=== PATIENT | female | born 1950 | race Asian ===

== ENCOUNTER 2017-09-28 14:58 | Emergency (ER) | payer OTHER, MEDICARE ==
[~2017-09-28] VITALS: Ht 165.1 cm; Wt 50.7 kg
[~2017-09-28 14:58] MED LIST: ASPI-496 PO; CARV-39 PO; LISI-167 PO; SODI30SP INH
[2017-09-28] MEDS ORDERED: SODIUM CHLORIDE FLUSH 10ML SYR IVF ONE (15:30)
[2017-09-28] MEDS ORDERED: ONDANSETRON 2MG/ML, 2ML IVPush ONE (15:30)
[2017-09-28] MEDS ORDERED: MORPHINE SULFATE 4 MG/ML, 1ML IVPush PRN (15:30)
[2017-09-28] MEDS ORDERED: ENALAPRILAT 1.25 MG/ML, 2ML IV ONE (15:30)
[2017-09-28] MEDS ORDERED: LABETALOL 5MG/ML, 20ML IVPush ONE (15:30)
[2017-09-28] MEDS ORDERED: ENALAPRILAT 1.25 MG/ML, 2ML ONE (15:36)
[2017-09-28] MEDS ORDERED: morphine SULFATE 10 MG/ML, 1ML ONE (15:37)
[2017-09-28] MEDS ORDERED: ONDANSETRON 2MG/ML, 2ML ONE (15:37)
[2017-09-28] MEDS ORDERED: LABETALOL 5MG/ML, 20ML ONE (15:37)
[2017-09-28 16:35] VITALS: BP 158/64
== END 2017-09-28 16:39 | disposition home or self-care (01) ==
LOC: ED 16:24
DX: I10 Essential (primary) hypertension (principal); I25.2 Old myocardial infarction; Z86.73 Personal history of transient ischemic attack (TIA), and cerebral infarction without residual deficits
CPT/HCPCS: 36415; 70450; 80047; 93005; 96374; 96375; 99285; J2405

== ENCOUNTER 2020-09-12 14:14 | Inpatient (IN) | payer OTHER, MEDICARE ==
[~2020-09-12] VITALS: Ht 152.4 cm; Wt 49.5 kg
--- NOTE | 2020-09-12 14:55 | NUR ---
PT C/O FEELING NERVOUS AND NOT BEING ABLE TO EAT. PT DENIES ANY SPECIFIC REASON FO FEELING THIS WAY. PT ALSO COMPLAINS OF A HEADACHE SINCE MONDAY. PT STATES SHE HAS A HX OF HYPERTENSION AND HAS BEEN TAKIN GHER MEDS. LAST DOSE WAS THIS AM.
--- NOTE | 2020-09-12 14:58 | NUR ---
PT IS HARD OF HEARING DUE TO RIGHT EAR SURGERY.
--- NOTE | 2020-09-12 15:10 | NUR ---
PATIENT AMBULATED TO BATHROOM WITH STEADY GAIT.
[2020-09-12] MEDS ORDERED: ENALAPRILAT 1.25 MG/ML, 1ML ONE (15:25)
[2020-09-12] MEDS ORDERED: SODIUM CHLORIDE FLUSH 10ML SYR IVF ONE (15:30)
[2020-09-12] MEDS ORDERED: ENALAPRILAT 1.25 MG/ML, 2ML IV ONE (15:30)
[2020-09-12] MEDS ORDERED: SODIUM CHLORIDE 0.9% 1,000ML IVBOLUS ONE (15:30)
--- NOTE | 2020-09-12 15:30 | NUR ---
22 GAUGE IV STARTED LEFT HAND, BLOOD COLLECTED AND SENT TO LAB, PATIENT MEDICATED PER eMAR, CONNECTED TO CARETAKER GROUNDS, CALL LIGHT WITHIN REACH, NO SIGNS OF ACUTE DISTRESS.
[2020-09-12 15:38] LABS: BASOPHILS % (AUTO) 1 % (0-1); EOSINOPHILS % (AUTO) 0 % (1-7); LYMPHOCYTES % (AUTO) 19 % (22-44); MEAN CORPUSCULAR HEMOGLOBIN 28.9 pg (27.0-34.8); MEAN CORPUSCULAR HGB CONC 32.3 g/dL (32.4-35.8); MEAN PLATELET VOLUME 7.7 fL (7.4-10.4); MONOCYTES % (AUTO) 7 % (2-9); NEUTROPHILS % (AUTO) 73 % (42-75); PLATELET COUNT 171 x10^3/uL (130-400); RED BLOOD COUNT 4.58 x10^6/uL (3.82-5.3); RED CELL DISTRIBUTION WIDTH 12.7 % (9.6-15.2)
[2020-09-12 15:41] LABS: MD NO
[2020-09-12 15:49] LABS: ANION GAP 5 mmol/L (5-15); CALCIUM 9.1 mg/dL (8.5-10.1); CHLORIDE 100 mmol/L (98-107); CREATININE 0.81 mg/dL (0.55-1.02)
[2020-09-12 15:53] LABS: TROPONIN I 0.072 ng/mL (0.000-0.045)
--- NOTE | 2020-09-12 15:55 | NUR ---
PATIENT AMBULATED TO BATHROOM AND BACK TO [facility] WITH STEADY GAIT. BP IS NOW 192/85.
--- NOTE | 2020-09-12 16:55 | NUR ---
ERMD AT BEDSIDE TO DISCUSS POC.
--- NOTE | 2020-09-12 17:00 | NUR ---
PATIENT AMBULATED TO BATHROOM AND BACK TO [facility] WITH STEADY GAIT, NO SIGNS OF ACUTE DISTRESS, CONNECTED TO VITALS MACHINE, CALL LIGHT WITHIN REACH.
[2020-09-12] MEDS ORDERED: ONDANSETRON 2MG/ML, 2ML ONE ×2 (17:11→20:36)
[2020-09-12] MEDS ORDERED: MORPHINE SULFATE 4 MG/ML, 1ML ONE (17:11)
--- NOTE | 2020-09-12 17:15 | NUR ---
PATIENT MEDICATED PER eMAR, CONNECTED TO LUBRICATION EQUIPMENT SERVICER, NO SIGNS OF ACUTE DISTRESS, CALL LIGHT WITHIN REACH.
[2020-09-12] MEDS ORDERED: ONDANSETRON 2MG/ML, 2ML IVPush ONE ×2 (17:30→21:00)
[2020-09-12] MEDS ORDERED: MORPHINE SULFATE 4 MG/ML, 1ML IVPush PRN (17:30)
[2020-09-12 17:50] LABS: TROPONIN I 0.082 ng/mL (0.000-0.045)
[2020-09-12] MEDS ORDERED: IBUPROFEN 600 MG TABLET PO PRN (18:30)
[2020-09-12] MEDS ORDERED: hydrALAzine 20 MG/ML, 1ML IVPush PRN (18:30)
[2020-09-12] MEDS ORDERED: DEXTROSE 50%, 50ML SYRINGE IVPush PRN (19:00)
[2020-09-12] MEDS ORDERED: GLUCAGON 1 MG IM PRN (19:00)
[2020-09-12] MEDS ORDERED: DEXTROSE 4 GM TAB.CHEW PO PRN (19:00)
[2020-09-12] MEDS ORDERED: HEPARIN 5,000 UNITS/ML, 1ML ONE (19:12)
[2020-09-12] MEDS: HEPARIN 5,000 UNITS/ML, 1ML SQ SCH (19:57)
[2020-09-12] MEDS ORDERED: LISINOPRIL 10 MG TABLET ONE (20:36)
[2020-09-12] MEDS ORDERED: ASPIRIN 81 MG TABLET EC ONE (20:36)
[2020-09-12] MEDS ORDERED: CARVEDILOL 12.5 MG TABLET ONE (20:37)
[2020-09-12] MEDS: LISINOPRIL 10 MG TABLET PO SCH (20:44)
[2020-09-12] MEDS: CARVEDILOL 25 MG TABLET PO SCH (20:45)
[2020-09-12] MEDS: SODIUM CHLORIDE FLUSH 10ML SYR IVF SCH (20:52)
--- NOTE | 2020-09-12 20:58 | NUR ---
Pt vomiting. Verbal order from Tai HUMPHREY for Zofran 4 mg IV once
[2020-09-12] MEDS ORDERED: INSULIN LISPRO 100 UNITS/ML, PEN SQ-INSULIN SCH (21:00)
[2020-09-12 22:11] LABS: TROPONIN I 0.091 ng/mL (0.000-0.045)
--- NOTE | 2020-09-12 23:00 | NUR ---
Covid swab pending delivery of additional swabs to ED. paper wrapping machine operator requested additional swabs
--- NOTE | 2020-09-13 | NUR ---
Resting comfortably. NSR noted on monitor. O2 high 90s RA. Bed low, side rails up, call snell within reach
--- NOTE | 2020-09-13 02:39 | NUR ---
REPORT OF PT FROM BARRY DAWSON AND ASSUMING CARE OF PT AT THIS TIME. PT IN HOSPITAL BED AND ATTACHED TO ALL VS AND CARDIAC MONITORS WITH VSS. PT HAS CALL LIGHT WITHIN REACH AND DENIES ANY NEEDS AT THIS TIME. COVID SWAB PERFORMED BY BARRY DAWSON AND WALKED TO THE LAB AT THIS TIME.
[2020-09-13] MEDS: HEPARIN 5,000 UNITS/ML, 1ML SQ SCH ×3 (04:08→18:05)
[2020-09-13 05:29] LABS: ANION GAP 6 mmol/L (5-15); CALCIUM 9.2 mg/dL (8.5-10.1); CHLORIDE 104 mmol/L (98-107); CREATININE 0.96 mg/dL (0.55-1.02)
--- NOTE | 2020-09-13 06:56 | NUR ---
SPOKE WITH DR BEE ON PHONE. PER DR BEE, OK TO D/C ACHS FINGERSTICKS AND INSULIN AND OKAY TO ORDER A REGULAR DIET. REPORT OF PT TO BARRY BELL.
--- NOTE | 2020-09-13 07:14 | NUR ---
REPORT RECEIVED FROM BARRY VALLEJO FOR TRANSFER OF PATIENT CARE.
[2020-09-13 08:07] LABS: ALANINE AMINOTRANSFERASE 29 U/L (12-78); ALBUMIN 3.8 g/dL (3.4-5.0); BILIRUBIN, DIRECT 0.2 mg/dL (0.1-0.2)
[2020-09-13 08:11] LABS: ALKALINE PHOSPHATASE 47 U/L (45-117); BILIRUBIN,INDIRECT 0.5 mg/dL (0.0-2.0); BILIRUBIN,TOTAL 0.7 mg/dL (0.2-1.0); TOTAL PROTEIN 7.6 g/dL (6.4-8.2); TROPONIN I 0.091 ng/mL (0.000-0.045)
--- NOTE | 2020-09-13 08:30 | NUR ---
cardiac rhythm strip printed and placed on chart.
[2020-09-13] MEDS ORDERED: ASPIRIN 81 MG TABLET CHEW ONE (08:44)
[2020-09-13] MEDS ORDERED: HEPARIN 5,000 UNITS/ML, 1ML ONE ×2 (08:44→17:58)
[2020-09-13] MEDS: SODIUM CHLORIDE FLUSH 10ML SYR IVF SCH ×2 (08:50→21:07)
[2020-09-13] MEDS: LISINOPRIL 10 MG TABLET PO SCH (08:50)
[2020-09-13] MEDS: ASPIRIN 81 MG TABLET EC PO SCH (08:50)
[2020-09-13] MEDS: CARVEDILOL 25 MG TABLET PO SCH (08:50)
--- NOTE | 2020-09-13 08:55 | NUR ---
PATIENT MEDICATED PER eMAR, CONNECTED TO DATABASE ARCHITECT, BREAKFAST TRAY PROVIDED, NO SIGNS OF ACUTE DISTRESS, CALL LIGHT WITHIN REACH.
[2020-09-13] MEDS ORDERED: LISI-167 PO (09:00)
[2020-09-13] MEDS ORDERED: LISI-170 PO (09:00)
--- NOTE | 2020-09-13 09:22 | NUR ---
PATIENT STATES SHE TAKES TWO 10 MG LISINOPRIL IN THE MORNING AND ONE 10 MG AT NIGHT, UPDATED MED REC AND SPOKE WITH DR. BEE. SHE CHANGED eMAR TO REFLECT PATIENT'S CORRECT DOSE.
[2020-09-13] MEDS: LISINOPRIL 20 MG TABLET PO SCH (09:30)
[2020-09-13] MEDS ORDERED: LISINOPRIL 10 MG TABLET ONE ×2 (09:54→20:55)
--- NOTE | 2020-09-13 10:35 | NUR ---
BSC PROVIDED FOR PATIENT, TOOTHBRUSH AND TOOTHPASTE GIVEN TO PATIENT, NO SIGNS OF ACUTE DISTRESS, CONNECTED TO MATHEMATICS DEPARTMENT CHAIR, CALL LIGHT WITHIN REACH.
--- NOTE | 2020-09-13 11:11 | NUR ---
LUNCH TRAY ORDERED.
--- NOTE | 2020-09-13 12:37 | NUR ---
LUNCH TRAY AND WARM BLANKET PROVIDED, PATIENT CONNECTED TO MIXER OPERATOR RAW SALT, NO SIGNS OF ACUTE DISTRESS, CALL LIGHT WITHIN REACH.
--- NOTE | 2020-09-13 12:40 | NUR ---
cardiac rhythm strip printed and placed on chart
[2020-09-13] MEDS ORDERED: ONDANSETRON 2MG/ML, 2ML ONE (14:11)
[2020-09-13] MEDS: ONDANSETRON 2MG/ML, 2ML IVPush PRN (14:13)
--- NOTE | 2020-09-13 14:14 | NUR ---
BREAK RN- SPOKE WITH DR BEE, MIGUELINA STUART ADMINISTERED.
--- NOTE | 2020-09-13 15:18 | NUR ---
Blanca loco in [facility] - 09/13/20 at 1519 by [email or web address] REPORT CALLED TO BARRY MERRITT ON MEDICAL.
--- NOTE | 2020-09-13 16:12 | NUR ---
PATIENT RESTING IN GURNEY WITH EYES CLOSED, RESPIRATIONS EVEN AND UNLABORED. CONNECTED TO BUSINESS DEVELOPMENT AGENT, CALL LIGHT WITHIN REACH.
--- NOTE | 2020-09-13 16:51 | NUR ---
CLEAR LIQUID DINNER TRAY ORDERED.
--- NOTE | 2020-09-13 16:55 | NUR ---
PATIENT AMBULATED TO [facility] WITH STEADY GAIT.
--- NOTE | 2020-09-13 17:29 | NUR ---
cardiac rhythm strip printed and placed on chart
[2020-09-13] MEDS ORDERED: NS + 40MEQ KCL 1,000 ML IV ONE (17:58)
[2020-09-13] MEDS ORDERED: CARVEDILOL 12.5 MG TABLET ONE (17:58)
[2020-09-13] MEDS ORDERED: POTASSIUM CHLORIDE 40 MEQ in SODIUM CHLORIDE 0.9% 500 ML IV ONE (18:00)
[2020-09-13] MEDS: CARVEDILOL 12.5 MG TABLET PO SCH (18:05)
[2020-09-13] MEDS ORDERED: ENALAPRILAT 1.25 MG/ML, 1ML ONE ×2 (18:37→19:54)
[2020-09-13] MEDS: ENALAPRILAT 1.25 MG/ML, 2ML IVPush PRN (18:40)
--- NOTE | 2020-09-13 18:40 | NUR ---
CLEAR LIQUID DINNER TRAY PROVIDED, 1.25 MG VASOTEC GIVEN FOR BP OF 182/95.
--- NOTE | 2020-09-13 19:06 | NUR ---
BEDSIDE REPORT FROM BARRY BELL. PT CONNECTED TO BP, CARDIAC, AND O2 MONITORS. PT SITTING UP IN BED TO EAT DINNER,
--- NOTE | 2020-09-13 19:59 | NUR ---
PT UP TO BEDSIDE COMMODE WITHOUT ASSISTANCE.ALL NEEDS MET AT THIS TIME.
[2020-09-13] MEDS ORDERED: LISINOPRIL 10 MG TABLET PO SCH (21:00)
--- NOTE | 2020-09-13 23:37 | NUR ---
PT SLEEPING, LIGHTS OFF TO PROMOTE REST. CALL LIGHT IN REACH.
[2020-09-14] MEDS: ENALAPRILAT 1.25 MG/ML, 2ML IVPush PRN ×2 (01:15→02:35)
[2020-09-14] MEDS ORDERED: ONDANSETRON 2MG/ML, 2ML ONE (01:24)
[2020-09-14] MEDS: HEPARIN 5,000 UNITS/ML, 1ML SQ SCH ×3 (01:26→20:28)
[2020-09-14] MEDS: ONDANSETRON 2MG/ML, 2ML IVPush PRN ×2 (01:26→20:28)
[2020-09-14] MEDS ORDERED: HEPARIN 5,000 UNITS/ML, 1ML ONE (01:28)
--- NOTE | 2020-09-14 01:33 | NUR ---
PT UP TO USE BEDSIDE COMMODE. NADN. ALL NEEDS MET AT THIS TIME.
[2020-09-14] MEDS ORDERED: ENALAPRILAT 1.25 MG/ML, 1ML ONE (02:32)
--- NOTE | 2020-09-14 03:11 | NUR ---
hydralazine ordered from pharmacy.
--- NOTE | 2020-09-14 04:04 | NUR ---
THIS RN HAS BEEN AT BEDSIDE TO ASSESS BP, AND MEDICATE PT. PT'S SOLE COMPLAINT IS "I HAVEN'T SLEPT ALL NIGHT." PT DENIES DASH.
--- NOTE | 2020-09-14 05:22 | NUR ---
CLONIDINE HELD FOR BP TRENDING DOWN.
[2020-09-14 06:22] LABS: BASOPHILS % (AUTO) 0 % (0-1); EOSINOPHILS % (AUTO) 0 % (1-7); LYMPHOCYTES % (AUTO) 14 % (22-44); MEAN CORPUSCULAR HEMOGLOBIN 28.9 pg (27.0-34.8); MEAN CORPUSCULAR HGB CONC 32.2 g/dL (32.4-35.8); MEAN PLATELET VOLUME 7.1 fL (7.4-10.4); MONOCYTES % (AUTO) 6 % (2-9); NEUTROPHILS % (AUTO) 79 % (42-75); PLATELET COUNT 192 x10^3/uL (130-400); RED BLOOD COUNT 4.42 x10^6/uL (3.82-5.3); RED CELL DISTRIBUTION WIDTH 12.5 % (9.6-15.2)
[2020-09-14 06:28] LABS: MD NO
[2020-09-14] MEDS ORDERED: CARVEDILOL 12.5 MG TABLET ONE (06:30)
[2020-09-14] MEDS: CARVEDILOL 12.5 MG TABLET PO SCH ×2 (06:32→17:09)
[2020-09-14 06:35] LABS: ALBUMIN 3.5 g/dL (3.4-5.0); ANION GAP 6 mmol/L (5-15); CALCIUM 8.5 mg/dL (8.5-10.1); CHLORIDE 111 mmol/L (98-107)
[2020-09-14 06:38] LABS: ALANINE AMINOTRANSFERASE 25 U/L (12-78); ALKALINE PHOSPHATASE 44 U/L (45-117); BILIRUBIN,TOTAL 0.8 mg/dL (0.2-1.0); CREATININE 0.71 mg/dL (0.55-1.02); TOTAL PROTEIN 7.3 g/dL (6.4-8.2)
--- NOTE | 2020-09-14 06:46 | NUR ---
BEDSIDE REPORT TO BARRY NGUYỄN. PT RESTING IN BED,
--- NOTE | 2020-09-14 06:53 | NUR ---
REPORT RECIEVED FROM BARRY CULVER. ASSUMED CARE
[2020-09-14] MEDS ORDERED: LISINOPRIL 20 MG TABLET ONE (09:15)
[2020-09-14] MEDS ORDERED: ASPIRIN 81 MG TABLET CHEW ONE (09:16)
[2020-09-14] MEDS: ASPIRIN 81 MG TABLET EC PO SCH (09:20)
[2020-09-14] MEDS: LISINOPRIL 20 MG TABLET PO SCH ×2 (09:20→20:29)
--- NOTE | 2020-09-14 10:38 | NUR ---
PT PROVIDED WITH MEAL TRAY. MEDICATED PER .
[2020-09-14 11:40] VITALS: BP 172/88
[2020-09-14] MEDS: SODIUM CHLORIDE FLUSH 10ML SYR IVF SCH ×2 (13:01→20:29)
[2020-09-14 13:08] VITALS: BP 170/96
[2020-09-14] MEDS ORDERED: LABETALOL 5MG/ML, 20ML ONE (13:28)
[2020-09-14] MEDS ORDERED: LABETALOL 5MG/ML, 20ML IVPush PRN ×2 (13:30→14:00)
[2020-09-14] MEDS: ACETAMINOPHEN 325 MG TABLET PO PRN ×2 (13:42→17:34)
[2020-09-14 14:00] VITALS: BP 146/74
[2020-09-14 19:19] VITALS: BP 146/88
[2020-09-15 00:14] VITALS: BP 138/74
[2020-09-15] MEDS: HEPARIN 5,000 UNITS/ML, 1ML SQ SCH ×3 (05:47→22:07)
[2020-09-15] MEDS: CARVEDILOL 12.5 MG TABLET PO SCH ×2 (05:47→18:44)
[2020-09-15 06:19] VITALS: BP 137/81
[2020-09-15 08:49] LABS: ANION GAP 5 mmol/L (5-15); CALCIUM 8.7 mg/dL (8.5-10.1); CHLORIDE 108 mmol/L (98-107); CREATININE 0.95 mg/dL (0.55-1.02)
[2020-09-15] MEDS: SODIUM CHLORIDE FLUSH 10ML SYR IVF SCH ×2 (09:00→21:10)
[2020-09-15] MEDS: ASPIRIN 81 MG TABLET EC PO SCH (09:09)
[2020-09-15] MEDS: LISINOPRIL 20 MG TABLET PO SCH ×2 (09:09→21:10)
[2020-09-15] MEDS: POTASSIUM CHLORIDE 20 MEQ TAB.ER.PRT PO SCH ×2 (09:10→14:53)
[2020-09-15] MEDS: ACETAMINOPHEN 325 MG TABLET PO PRN (09:20)
[2020-09-15 11:40] VITALS: BP 176/90
[2020-09-15 14:57] VITALS: BP 164/80
[2020-09-15 19:23] VITALS: BP 159/89
[2020-09-16 00:47] VITALS: BP 142/81
[2020-09-16 05:34] LABS: BASOPHILS % (AUTO) 0 % (0-1); EOSINOPHILS % (AUTO) 1 % (1-7); LYMPHOCYTES % (AUTO) 32 % (22-44); MEAN CORPUSCULAR HEMOGLOBIN 29.2 pg (27.0-34.8); MEAN CORPUSCULAR HGB CONC 32.3 g/dL (32.4-35.8); MEAN PLATELET VOLUME 7.6 fL (7.4-10.4); MONOCYTES % (AUTO) 12 % (2-9); NEUTROPHILS % (AUTO) 55 % (42-75); PLATELET COUNT 202 x10^3/uL (130-400); RED BLOOD COUNT 4.06 x10^6/uL (3.82-5.3); RED CELL DISTRIBUTION WIDTH 12.7 % (9.6-15.2)
[2020-09-16 05:37] LABS: MD NO
[2020-09-16] MEDS: HEPARIN 5,000 UNITS/ML, 1ML SQ SCH ×2 (05:43→14:00)
[2020-09-16] MEDS: CARVEDILOL 12.5 MG TABLET PO SCH (05:43)
[2020-09-16 05:44] LABS: ANION GAP 4 mmol/L (5-15); CALCIUM 8.6 mg/dL (8.5-10.1); CHLORIDE 110 mmol/L (98-107)
[2020-09-16 07:06] VITALS: BP 157/76
[2020-09-16] MEDS: LISINOPRIL 20 MG TABLET PO SCH (09:01)
[2020-09-16] MEDS: ASPIRIN 81 MG TABLET EC PO SCH (09:01)
[2020-09-16] MEDS: SODIUM CHLORIDE FLUSH 10ML SYR IVF SCH (09:01)
[2020-09-16] MEDS ORDERED: ASCORBIC ACID 500 MG TABLET PO SCH (12:00)
[2020-09-16] MEDS ORDERED: ZINC220C7 PO (12:25)
[2020-09-16] MEDS ORDERED: CHOL500045 PO (12:25)
[2020-09-16] MEDS ORDERED: LISI-170 PO (12:25)
[2020-09-16] MEDS ORDERED: ASCO500T9 PO (12:25)
[2020-09-16] MEDS ORDERED: THIA100T67 PO (12:25)
[2020-09-17] MEDS ORDERED: THIAMINE 100MG TABLET PO SCH (09:00)
[2020-09-17] MEDS ORDERED: ZINC SULFATE 220 MG CAPSULE PO SCH (09:00)
[2020-09-17] MEDS ORDERED: CHOLECALCIFEROL 5,000u TAB PO SCH (09:00)
== END 2020-09-16 14:30 | disposition home or self-care (01) | DRG 177 ==
LOC: ED 15:42 → EDIP 23:07 → 4EST 09-14 11:15
PROVIDERS: ADMIT Internal Medicine; ATTEND Internal Medicine
DX: U07.1 COVID-19 (principal); I21.A1 Myocardial infarction type 2; I16.1 Hypertensive emergency; E87.1 Hypo-osmolality and hyponatremia; Z86.73 Personal history of transient ischemic attack (TIA), and cerebral infarction without residual deficits; I10 Essential (primary) hypertension; E87.6 Hypokalemia
CPT/HCPCS: 36415; 71045; 80048; 80053; 80076; 82040; 82962; 83036; 83735; 84484; 85025; 87635; 93005; 93306; 93356; 96361; 96374; 96375; 99285; G0378; J1644; J2405; J3480; J0360; J2270; J7030; J7040